=== PATIENT | female | born 1980 | race Caucasian/White ===

== ENCOUNTER 2025-05-26 09:57 | Day surgery (SDC) | payer OTHER, SELFPAY ==
[2025-05-19 14:46] VITALS: BMI 29.3
[2025-05-26] VITALS (8 sets, daily range): BP systolic 95–150; BP diastolic 62–82; PULSE 72–102; RESP 14–18; TEMP 36.6–36.9; O2SAT 98–100
[2025-05-26] MEDS: LACTATED RINGERS 1,000 ML 30 ML IV CONT ×2 (10:40→14:08)
--- OUTSIDE RECORDS SUMMARY | 2025-05-26 10:41 | XMS_ITS | Clinical Summary ---
Author Organization [facility] Address [address] [place] [id number] Care Team Providers Care Magnetic Tester Name Role Phone Naveen Mcneal MD Unavailable [phone] Elan Schaffer MD Primary Care Provider [phone] Allergies Active Allergy Reactions Criticality Noted Date Comments Sulfa (Sulfonamide Antibiotics) Swelling Medium 11/16 Medications ergocalciferol (VITAMIN D) 50,000 unit capsule Take 1 capsule (50,000 Units total) by mouth once a week 12 capsule 3 02/16/2022 Active topiramate (TOPAMAX) 25 mg tabletIndicatio ns:Abnormal weight gain,Overweight with body mass index (BMI) of 29 to 29.9 in adult Take 1 tablet (25 mg total) by mouth 2 (two) times a day 60 tablet 2 01/31/2024 Active semaglutide (Wegovy) 0.25 mg/0.5 mL auto-injector Inject 0.5 mL (0.25 mg total) under the skin every 7 days 2 mL 2 02/13/2024 Active Active Problems Problem Noted Date Diagnosed Date Class 1 obesity due to exces s calories without serious comorbidity with body mass index (BMI) of 32.0 to 32.9 in adult 07/23/2023 Abnormal weight gain 07/23/2023 Vitamin D deficiency 03/23/2023 Assessment & Plan (03/23/2023 10:18 AM CDT): - check vit d Metrorrhagia 04/25/2022 Assessment & Plan (04/25/2022 12:59 PM CDT): Recent onset-advised to get lab work done (estradiol, FSH, LH, testosterone, DHEA, and prolactin level, recent CBC and TSH from 01/2022 were unremarkable), informed will be notified of results when results become available. A referral was also made to gynecology for further evaluation and management, advised should be getting a call to schedule, however was provided with the contact information if would need to call diFollow-up as needed. Menorrhagia with irregular cycle 04/25/2022 Assessment & Plan (04/25/2022 12:56 PM CDT): See plan of care for metrorrhagia. Dysmenorrhea 04/25/2022 Assessment & Plan (04/25/2022 12:58 PM CDT): See plan of care for metrorrhagia. Advised can take OTC NSAID as directed as needed, alternating with Tylenol as directed as needed for additional pain relief. ASCUS of cervix with negative high risk HPV 04/14 Assessment & Plan (04/25/2022 1:01 PM CDT): Recent finding, HPV negative-discussed recommendation to repeat in 3 years, however previously gave option to repeat in 4-6 months to 1 yr if prefers and insurance allows. Normal breast exam 03/29/2022 Assessment & Plan (03/29/2022 8:38 AM CDT): In office breast exam with no abnormal findings, bilateral breast implants present. Painful lumpy right breast 11/23/2020 Assessment & Plan (12/28/2020 9:30 AM CDT): Overall Condition Chronic Condition: Uncontrolled. Treatment: Continue Present Management and Referral: Plastic Surgeon to assess implant status. Referral to OB-Rn Imaging to assess other causes of mastalgia. Follow up PRN Assessment & Plan (11/23/2020 7:39 AM FLAT LOCK OPERATOR): Overall Condition New Breast Self-finding needs to be evaluated. Fibrocystic Disease verus Fibroadenoma vs. Malignancy. Treatment: Imaging: Breat ultrasound in under 40 years old female to assess Breast consistency. and Referral: Depending on result, will consider further diagnostic stuides like Mammogram or Aquatics Manager Referral. Follow up in 1 month Encounter for well woman carlie see with routine gynecological exam 03/17/2020 Assessment & Plan (03/29/2022 8:39 AM CDT): Encouraged monthly breast self exams. Advised to follow recommendations for bilateral mammography due before end 2021. Recommended pap testing/HPV screening minimum every 5 years depending on outcome of test and patient preference. Assessment & Plan (03/17/2020 12:52 PM CDT): Encouraged monthly breast self exams. Discussed mammogram screening at age 40 years. Discussed guidelines recommending pap smears every 3 years or every 5 years with co-screening for HPV screening for women 30-65 years old, however, prefers having a well women examination every 1-2 years. Annual physical exam 03/17/2020 Assessment & Plan (03/23/2023 10:17 AM CDT): - Reviewed with the patient BMI, blood pressure, diet, exercise, and encouraged healthy lifestyle choices. - Screened for high risk behaviors, diet and exercise habits, and symptoms of depression. - check screening labs - encouraged regular exercise and weight loss Assessment & Plan (03/29/2022 8:38 AM CDT): HPV screening ordered. Assessment & Plan (03/17/2020 12:53 PM CDT): See encounter for well woman exam with routine gynecological exam. Screening for cervical cancer 12/10/2019 Assessment & Plan (03/29/2022 8:37 AM CDT): Sample of cervical cells for Pap smear obtained. Assessment & Plan (03/17/2020 12:53 PM CDT): See encounter for well woman exam with routine gynecological exam. Assessment & Plan (12/10/2019 8:50 AM FLAT LOCK OPERATOR): Referral to Amira Diego for Well Woman Annual Exam with PAP H/O breast augmentation (2007) 12/10/2019 Overweight (BMI 25.0-29.9) 12/10/2019 Assessment & Plan (12/10/2019 10:25 AM FLAT LOCK OPERATOR): Recommended aggressive Lifestyle modification and weight loss for improving overall weight related health conditions. Follow up in 1 or 3 months for continuing Lifestyle Medicine education and management visit. Overall Condition Chronic Condition: Uncontrolled. Treatment: New Medication: phentermine. Follow up in 3 months Acute bilateral low back pain without sciatica 0 12/10/2019 Assessment & Plan (06/07/2020 4:00 PM CDT): Toradol 60 mg IM given. Advised can take Tylenol as directed as needed tonight for pain and tomorrow can alternate Tylenol with ibuprofen as directed as needed. Has prescription for Flexeril, instructed can also take as directed as needed. Recommended applying ice for 15-20 minutes every hour when able for the first 48 hours after onset of pain, then can use heat or ice. Instructed to follow-up with Dr. Schaffer if pain does not improve, worsens, or new symptoms develop. Assessment & Plan (12/10/2019 10:25 AM FLAT LOCK OPERATOR): Overall Condition Chronic Condition: Uncontrolled. Treatment: New Medication: Flexeril and Referral: Physical therapy Follow up in 6 months Immunizations Immunization Administration Dates Next Due DTaP 5 Pertussis 04/09/2015 HPV, Quadrivalent 10/22/2006 Influenza, Unspecified 06/15/2023(Deferr ed: Patient decision),07/15/2022(Deferred: Patient Refused) Tdap 09/13/2010 Surgical History Surgery Date Site/Laterality Comments SECTION 2 BREAST BIOPSY 07/08/2021 Left AUGMENTATION MAMMAPLASTY 10/15/2008 - 10/14/2009 Bilater al silicone EXCESSIVE THIGH / HIP / BUTT OCK / FLANK SKIN EXCISION HYSTERECTOMY 12/13/2022 - 01/12/2023 Family History Medical History Relation Name Comments No Known Problems Father No Known Problems Mother Relation Name Status Comments Father Alive Mother Alive Social History Tobacco Use Types Packs/Day Years Used Date Smoking Tobacco: Never Smokeless Tobacco: Never Tobacco Cessation:Counseling Given: Not Answered Alcohol Use Standard Drinks/Week Comments Yes 0 (1 standard drink = 0.6 oz pur e alcohol) AUDIT-C Answer Date Recorded Q1: How often do you have a drink containing alc ohol? Monthly or less 01/31/2024 Q2: How many drinks containi ng alcohol do you have on a typical day when you are drinking? 1 or 2 01/31/2024 Q3: How often do you have si x or more drinks on one occasion? Less than monthly 01/31/2024 PHQ-2 Answer Date Recorded PHQ-2 Total Score (If total score is 3 or more points, staff should administer the PHQ-9) 0 03/23/2023 Personal Safety Answer Date Recorded Getting School Help Needed Denies 10/06 Comments No Sex and Gender Information Value Date Recorded Sex Assigned at Not on file Legal Sex Female 9:09 AM FLAT LOCK OPERATOR Gender Identity Female 04/24/2022 7:04 AM CDT Sexual Orientation Straight 04/24/2022 7 :04 AM CDT Obstetrics History Para Term AB IAB SAB Ectopic Multiple Livin g Live Births 2 2 2 Date Outcome GA Total Labor Labor/2nd/3rd Weight Sex Type Anes PTL Alma A1 A5 Name Clin Term Term Last Filed Vital Signs Vital Sign Reading Time Taken Comments Blood Pressure 108/82 07/23/2023 11:51 AM CDT Pulse 88 07/23/2023 11:51 AM CDT Temperature 36.1 C (96.9 F) 07/23/2023 11:51 AM CDT Respiratory Rate 18 07/23/2023 11:51 AM CDT Oxygen Saturation 98% 07/23/2023 11:51 AM CDT Inhaled Oxygen Concentration - - Weight 69.9 kg (154 lb) 01/29/2025 8:10 AM CDT Height 152.4 cm (5') 01/29/2025 8:10 AM CDT Body Mass Index 30.08 01/29/2025 8:10 AM CDT Plan of Treatment Health Maintenance Due Date Last Done Comments Hepatitis C Screening 1980 Hepatitis B Screening 1999 HPV Vaccines (2 - 3-dose series) 11/19/2006 10/22/2006 Depression Screening 03/23/2024 03/23/2023, 01/27/2022, 12/28/2020, Additional history exists Regular Well Visit/Exam 18-64 03/23/2024 03/23/2023, 03/29/2022, 01/27/2022, Additional history exists Covid-19 Vaccine ( season) 2024 10/13/2022, 09/04/2021, 12/25/2020, Additional history exists DTaP/Tdap/Td Vaccine (3 - Td or Tdap) 04/09/2025 04/09/2015, 09/13/2010 Influenza Vaccine (#1) 2025 Breast Cancer Screening-Mammogram 01/29/2026 01/29/2025, 01/14/2024, 01/10/2023, Additional history exists Cervical Cancer Screening Discontinued 03/29/2022, 12/2019 Pneumococcal vaccine <65 Aged Out No longer eligible based on patient's age to complete this topic Varicella Vaccines Discontinued Procedures Procedure Name Priority Date/Time Associated Diagnosis Comments SCREENING MAMMOGRAM BILATERAL W HANK W IMPLANTS Schedule Routine, Read Routine (OP Routine) 01/29/2025 8:10 AM CDT Screening mammogram, encounter for PAP AND HIGH RISK HPV, REFLEX TO GENOTYPING Routine 03/29/2022 12:09 PM CDT Encounter for well woman exam with routine gynecological exam from Last 3 Months or Most Recently Relevant to Health Maintenance Results * Screening Mammogram Bilateral W Hank W Implants (01/29/2025 8:10 AM CDT) Anatomical Region Laterality Modality Breast Bilateral Mammography Impressions 01/29/2025 8:24 AM CDT Bilateral No evidence of malignancy in either breast. OVERALL BI-RADS FINAL ASSESSMENT: 1 - Negative RECOMMENDATION: Recommend bilateral annual screening mammography. Narrative 01/29/2025 8:24 AM CDT EXAMINATION: Screening Mammogram Bilateral W Hank W Implants: 01/29/2025 COMPARISON: Relevant prior studies available at the time of interpretation were reviewed. TECHNIQUE: Mammography was performed with 2D and digital breast tomosynthesis (DBT) images. CAD was utilized. BREAST PARENCHYMAL COMPOSITION: The breasts are heterogeneously dense, which may obscure small masses.There is a biopsy marker on the left. There are bilateral retropectoral silicone implants. The presence of implants limits the sensitivity of mammography. FINDINGS: Bilateral There is no suspicious mass, calcification, or architectural distortion in either breast. us Self Screening Mammogram IMG MAMMO PROCEDURES Fi nal Result * (ABNORMAL) Pap and High Risk HPV, reflex to Genotyping (03/29/2022 12:09 PM CDT) Thin prep (Pap test) 03/29/2022 12:09 PM CDT 03/30/2022 12:09 PM CDT Narrative PATHOLOGY [facility] - 04/04/2022 4:57 PM CDT [facility] Department of Pathology [address] [place], [place] [id number] Final Report with Addendum Note to Patients: This report may contain a detailed description of human tissue sent by a health care provider to the laboratory for pathologic evaluation. The content of this report is essential for diagnosis and may provide important critical findings. This information may be unfamiliar to patients to review without a medical professional present. It is advised that the patient review this report in the presence of a health care provider who can answer questions and explain the details. Patient Name: DALLAS ABARCA Address: [facility] [place] [address] Gender: F : 1980 (Age: 41) Service: Laboratory Location: N : [id number] [facility] #: [id number] Patient Type: [facility] SPECIMEN Taken: 03/29/2022 Received: 03/30/2022 Accessioned:: 03/31/2022 Reported: 04/04/2022 Physician(s): Lorie AndersonNJose AJose A [facility] Diagnosis: Source of Specimen: SCREENING THIN PREP IMAGED PAP w/ HPV Specimen Adequacy: - Satisfactory for evaluation; endocervical/transformation zone component present General Category: - Epithelial cell abnormality Interpretation/Results: - Atypical squamous cells of undetermined significance ANANTH Glass(ASCP)Alden Soler M.D. Report Electronically Reviewed and Signed Out By Alden Soler M.D. 04/04/2022 16:57:26Addenda: HPV Test Interpretation NEGATIVE for types 16, 18, 31, 33, 35, 39, 45, 51, 52, 56, 58, 59, 66 and 68. Test performed utilizing Gen-Probe Aptima assay. ANANTH Glass(ASCP)Report Electronically Reviewed and Signed Out By ANANTH Glass(ASCP) 03/31/2022 14:45:46 Specimen(s) Received: A: SCREENING THIN PREP IMAGED PAP w/ HPV Clinical History: The Pap test is a screening test used to aid in the detection of cervical cancer and its precursors. It should not be the sole means by which malignant and premalignant lesions are diagnosed. Both false negative and false positive results may occur. It also has poor sensitivity for the detection of endometrial lesions and should not be used to evaluate suspected endometrial abnormalities. For these reasons it is most important to obtain Pap tests at regular intervals. The performance characteristics of some immunohistochemical stains, fluorescence in-situ hybridization tests and immunophenotyping by flow cytometry cited in this report (if any) were determined by the Surgical Pathology Department at [facility] as part of an ongoing water quality tester program and in compliance with federally mandated regulations drawn from the Clinical Laboratory Improvement Act of 1988 (CLIA '88). Some of these tests rely on the use of analyte specific reagents and are subject to specific labeling requirements by the US Food and Drug Administration. Such diagnostic tests may only be performed in a facility that is certified by the Department of Health and Human Services as a high complexity laboratory under CLIA '88. The FDA has determined that such clearance or approval is not necessary. This test is used for clinical purposes. It should not be regarded as investigational or for research. Nevertheless, federal rules concerning the medical use of analyte specific reagents require that the following disclaimer be attached to the report: This test was developed and its performance characteristics determined by the Surgical Pathology Department [facility]. It has not been cleared or approved by the U. S. Food and Drug Administration. Amira Diego NP LAB CYTOLOGY ORDERABLES Final Re sult PATHOLOGY [facility] from Last 3 Months or Most Recently Relevant to Health Maintenance [facility]S Care Teams Magnetic Tester Relationship Specialty Start Date End Date Elan Schaffer MD [address] [facility] [address] [place] [address] PCP - General Family Medicine 07/23/23 Naveen Mcneal MD [address] [place] [address] Referring Physician Plastic Surgery 06/22/21
--- OUTSIDE RECORDS SUMMARY | 2025-05-26 10:42 | XMS_ITS | Continuity of Care Document ---
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 LANDRY 03/31 [place]ased w/[place] Limitations [place] [employer](Del ta) OUTPATIENT [id number] pap TIFFANY-ESSIE PASCUAL V 04/24 Released w/o Limitations [employer](D elta) [employer](Opt ometry) OUTPATIENT [id number] well eye exam CHRISTAL MEJIA 11/27 Released w/o Limitations [employer](O ptometr y) [employer](Spa ce/Missil e Medicine) OUTPATIENT [id number] c/o knee BETO MAIER 12/10 Released w/o Limitations [employer](S pace/Mi ssile Medicin e) [employer](Del ta) OUTPATIENT [id number] F/u Knee pain TIFFANY-ESSIE PASCUAL V 02/10 Released w/o Limitations [employer](D elta) [employer](Del ta) OUTPATIENT [id number] back pain BARTOLO MOODY 10/27 Released w/o Limitations [employer](D elta) [employer](Spe cial Needs Program) TELE CONSULT [id number] Notes Entered by: PARAS BEEBE 06 Jan 2015 1132 ------- ------- ------- ------- -- ASHLYN/ PARAS ELIZONDO 01/06 Referred for Appointment [employer](S pecial Needs Program ) [employer](Del ta) OUTPATIENT [id number] PCSing physica l ESSIE CHRIS V 01/11 Released w/o Limitations [employer](D elta) [employer](Spe cial Needs Program) OUTPATIENT [id number] CRUZ STRONG Ilda 01/13 Released w/o Limitations [employer](S pecial Needs Program ) [employer](ZZZ Ncirlik_F HC_Team A) OUTPATIENT [id number] cold since Satur y, not getting better, slight fever ZINA MCCABE 11/25 Released w/o Limitations [employer](Z ZZNcirl ik_FHC_ Team A) [employer](ZZZ Ncirlik_F HC_Team A) OUTPATIENT [id number] ADOLPH BLISS 01/05 Released w/o Limitations [employer](Z ZZNcirl ik_FHC_ Team A) [employer] [facility]ovanny Ilda [place])(War rior Op Med Cln Tm A Ad) OUTPATIENT [id number] Issue with right knee [id number] MURRAY MILLIGAN 06/15 Released w/o Limitations [employer] Jovanny [facility])(W arrior Op Med Cln Tm A Ad) [employer] J[facility]anny [facility])(War rior Op Med Cln Tm A Ad) TELE CONSULT [id number] Notes Entered by: SHWETHA REYNOLDS 07 Jul 2016 0932 ------- ------- ------- ------- -- Network results Physica l Therapy 016 MURRAY GUZMAN 07/07 Medical Group Jovanny [facility])(W arrior Op Med Cln Tm A Ad) [facility])(Sco tt [facility] Fam Res Tm Gold) OUTPATIENT [id number] back pain x3days, [id number] KEVIN GARCIA 02/05 Released w/o Limitations [employer] Jovanny [facility])(S cott [facility] Fam Res Tm Gold) [employer] J[facility]anny [facility])(War rior Op Med Cln Tm A Ad) TELE CONSULT [id number] Notes Entered by: Km JACKSON 27 Feb 2017 1518 ------- ------- ------- ------- -- Network results Occupat ional/P hysical Therapy 02/19/17 TB MURRAY MILLIGAN 02/[address] [place] [address])(W arrior Op Med Cln Tm A Ad) [address] [place] [address])(War rior Op Med Cln Tm A Ad) OUTPATIENT [id number] pre-emp loyment physica l MURRAY MILLIGAN 02/27 Released w/o Limitations [address] [place] [address])(W arrior Op Med Cln Tm A Ad) [address] [place] [address])(War rior Op Med Cln Tm A Ad) OUTPATIENT [id number] lower back pain, [id number] MURRAY MILLIGAN 06/01 Released w/o Limitations [address] [place] [address])(W arrior Op Med Cln Tm A Ad) [address] [place] [address])(War rior Op Med Cln Tm A Ad) TELE CONSULT [id number] Notes Entered by: Romy SANABRIA 22 Jun 2017 1346 ------- ------- ------- ------- -- Low Back MRI Request - F/U Low Back X-ray/ Abhilash / [id number] 2 - AVNI Adames 06/22 Referred for Appointment [address] [place] [address])(W arrior Op Med Cln Tm A Ad) [address] [place] [address])(Control Board Operator ecology) OUTPATIENT [id number] WWE, 448.003 2 JOELLEN SARAVIA 11/16 Released w/o Limitations [address] [place] [address])(G ynecolo gy) [address] [place] [address])(Control Board Operator ecology) OUTPATIENT [id number] 7 [id number], [id number] eferral for heavy bleedin g and irregul ar BE ATKINSON 05/04 Released w/o Limitations [address] [place] [address] [employer] ([facility])(G ynecolo gy) [address] [place] [address] [employer] ([facility])(Control Board Operator ecology) TELE CONSULT [id number] Notes Entered by: VARUN IRELAND 15 May 2022 1534 ------- ------- ------- ------- -- Results review BE ATKINSON 05/[address] [place] [address] [employer] ([facility])(G ynecolo gy) [address] [place] [address] [employer] ([facility])(Control Board Operator ecology) OUTPATIENT [id number] Results of US and Discuss Hystere ctomy BE ATKINSON 06/26 Released w/o Limitations [address] [place] [address] Group [employer] ([facility])(G ynecolo gy) [address] [place] [address] [employer] ([facility])(Control Board Operator ecology) OUTPATIENT [id number] 3 F/U discuss hystere ctomy// BE ATKINSON 11/23 Released w/o Limitations [address] [place] [address] Group [employer] ([facility])(G ynecolo gy) [address] [place] [address] [employer] ([facility])(Control Board Operator ecology) TELE CONSULT [id number] Notes Entered by: ANKUR CRAWLEY 01 Dec 2022 1525 ------- ------- ------- ------- -- confirm ation of surgery EMILIANO SALDANA 12/[address] [place] [address] Group [employer] ([facility])(G ynecolo gy) [address] [place] [address] [employer] ([facility])(Control Board Operator ecology) TELE CONSULT [id number] Notes Entered by: EMILIANO SALDANA 12 Dec 2022 0900 ------- ------- ------- ------- -- Surgery EMILIANO Ramos 12/[address] [place] [address] [employer] ([facility])(G ynecolo gy) [address] [place] [address] [employer] ([facility])(Control Board Operator ecology) TELE CONSULT [id number] Notes Entered by: DIANA SIERRAEDERJONATHON Frazier 19 Dec 2022 1513 ------- ------- ------- ------- -- Right Fax BE ATKINSON 12/[address] [place] [address] [employer] ([facility])(G ynecolo gy) [address] [place] [address] [employer] ([facility])(Control Board Operator ecology) OUTPATIENT [id number] 3 wk post op BE ATKINSON 01/03 Released w/o Limitations [address] [place] [address] [employer] ([facility])(G ynecolo gy) [address] [place] [address] [employer] ([facility])(Control Board Operator ecology) OUTPATIENT [id number] 0 Ingrown hair since surgery MARGARET FRANCISCO 01/11 Released w/o Limitations [address] [place] [address] [employer] ([facility])(G ynecolo gy) [address] [place] [address] [employer] ([facility])(Control Board Operator ecology) OUTPATIENT [id number] 6 wk post op BE ATKINSON 01/22 Released w/o Limitations [address] [place] [address] [employer] ([facility])(G ynecolo gy) Procedures Combined list of: 1) Procedures from Department of Veterans Affairs facilities going back up to thelast 18 months, not all VA non-surgical procedures are included; 2) All procedures from the Department of Defense facilities. Procedure Procedure Type Code Date Perfomer Comments Sourc e TELE ASSESS & MGT SRV PROV QUAL NONPHYS HLTH CARE PRO TO EST PAT,PARENT,GUARD NOT ORIG REL ASSESS & MGT SRV PROV W/IN PREV 7 DAYS NOR LEAD ASSESS & MGT SRV/PX W/IN NXT 24 HR/SOON APT;5-10 MIN MED DIS 023 DoD BRIEF EMOTIONAL/BEHAVIORAL ASSESSMENT (EG, DEPRESSION INVENTORY, ATTENTION-DEFICIT/HYPER ACTIVITY DISORDER [ADHD] SCALE), WITH SCORING AND DOCUMENTATION, PER STANDARDIZED INSTRUMENT 018 [facility] SCREENING PAPANICOLAOU SMEAR; OBTAINING, PREPARING AND CONVEYANCE OF CERVICAL OR VAGINAL SMEAR TO LABORATORY 011 DoD PURE TONE AUDIOMETRY (THRESHOLD); AIR AND BONE [facility] OPHTHALMOSCOPY, EXTENDED, WITH RETINAL DRAWING (EG, FOR RETINAL DETACHMENT, MELANOMA), WITH INTERPRETATION AND REPORT; INITIAL [facility] SCREENING PAPANICOLAOU SMEAR; OBTAINING, PREPARING AND CONVEYANCE OF CERVICAL OR VAGINAL SMEAR TO LABORATORY 010 [facility] HEALTH&BEHAV ASSESSMENT (EG, HEALTH-FOC CLINICAL INTERVIEW, BEHAVIORAL OBSERVATIONS, PSYCHOPHYSICOLOGICAL MONITOR, HEALTH-ORIENT QUESTIONNAIRES), EA 15 MIN GLDH-HC-CVCF W THE PATIENT; INIT ASSESSMENT [facility] THERAPEUTIC, PROPHYLACTIC, OR DIAGNOSTIC INJECTION (SPECIFY SUBSTANCE OR DRUG); SUBCUTANEOUS OR INTRAMUSCULAR 015 [facility] EXERCISE EQUIPMENT 014 [facility] DETERMINATION OF REFRACTIVE STATE [facility] SCREENING PAPANICOLAOU SMEAR; OBTAINING, PREPARING AND CONVEYANCE OF CERVICAL OR VAGINAL SMEAR TO LABORATORY 013 [facility] SCREENING PAPANICOLAOU SMEAR; OBTAINING, PREPARING AND CONVEYANCE OF CERVICAL OR VAGINAL SMEAR TO LABORATORY 008 [facility] SCREENING PAPANICOLAOU SMEAR; OBTAINING, PREPARING AND CONVEYANCE OF CERVICAL OR VAGINAL SMEAR TO LABORATORY 008 [facility] SUBSEQ CARE VISIT () [EXCLS:PATIENTS WHO ARE SEEN FOR A CONDITION UNREL TO / CARE (EG,AN UP RESPIR INFECT;PATIENTS SEEN FOR CONSULTATION ONLY,NOT FOR CONT CARE)] [facility] SUBSEQ CARE VISIT () [EXCLS:PATIENTS WHO ARE SEEN FOR A CONDITION UNREL TO / CARE (EG,AN UP RESPIR INFECT;PATIENTS SEEN FOR CONSULTATION ONLY,NOT FOR CONT CARE)] [facility] SUBSEQ CARE VISIT () [EXCLS:PATIENTS WHO ARE SEEN FOR A CONDITION UNREL TO / CARE (EG,AN UP RESPIR INFECT;PATIENTS SEEN FOR CONSULTATION ONLY,NOT FOR CONT CARE)] [facility] SUBSEQ CARE VISIT () [EXCLS:PATIENTS WHO ARE SEEN FOR A CONDITION UNREL TO / CARE (EG,AN UP RESPIR INFECT;PATIENTS SEEN FOR CONSULTATION ONLY,NOT FOR CONT CARE)] [facility] SUBSEQ CARE VISIT () [EXCLS:PATIENTS WHO ARE SEEN FOR A CONDITION UNREL TO / CARE (EG,AN UP RESPIR INFECT;PATIENTS SEEN FOR CONSULTATION ONLY,NOT FOR CONT CARE)] [facility] SUBSEQ CARE VISIT () [EXCLS:PATIENTS WHO ARE SEEN FOR A CONDITION UNREL TO / CARE (EG,AN UP RESPIR INFECT;PATIENTS SEEN FOR CONSULTATION ONLY,NOT FOR CONT CARE)] [facility] SUBSEQ CARE VISIT () [EXCLS:PATIENTS WHO ARE SEEN FOR A CONDITION UNREL TO / CARE (EG,AN UP RESPIR INFECT;PATIENTS SEEN FOR CONSULTATION ONLY,NOT FOR CONT CARE)] [facility] COLPOSCOPY OF THE CERVIX INCLUDING UPPER/ADJACENT VAGINA; WITH ENDOCERVICAL CURETTAGE [facility] HUMAN PAPILLOMAVIRUS VACCINE, TYPES 6, 11, 16, 18, QUADRIVALENT (4VHPV), 3 DOSE SCHEDULE, FOR INTRAMUSCULAR USE 007 [facility] SCREENING PAPANICOLAOU SMEAR; OBTAINING, PREPARING AND CONVEYANCE OF CERVICAL OR VAGINAL SMEAR TO LABORATORY 006 [facility] INJECTION, MEDROXYPROGESTERONE ACETATE FOR CONTRACEPTIVE USE, 150 MG 005 [facility] SCREENING PAPANICOLAOU SMEAR; OBTAINING, PREPARING AND CONVEYANCE OF CERVICAL OR VAGINAL SMEAR TO LABORATORY 005 [facility] SUBSEQ CARE VISIT () [EXCLS:PATIENTS WHO ARE SEEN FOR A CONDITION UNREL TO / CARE (EG,AN UP RESPIR INFECT;PATIENTS SEEN FOR CONSULTATION ONLY,NOT FOR CONT CARE)] 005 [facility] INFUSION, NORMAL SALINE SOLUTION , 1000 CC 004 [facility] INJECTION, PROMETHAZINE HCL, UP TO 50 MG 004 [facility] Cervical Pap Smear Cervical Pap Smear 21428 11/16 018 JOELLEN SARAVIA [facility] Health And Behav A e mt Each 15 Min Initial A e ment Health And Behav Assessmt Each 15 Min Initial Assessment [address] Supervised Injection Intramuscular Supervised Injection Intramuscular 11729 015 BARTOLO ARMENDARIZ Exercise equipment 014 ESSIE HOUSTON Knee orthosis, immobilizer, canvas longitudinal, prefabricated, [id number] 014 ESSIE HOUSTON Determination Of Refractive State Determination Of Refractive State [id number] 014 CHRISTAL MEJIA [facility] Ophthalmological New Patient Start Comprehensive Care Ophthalmological New Patient Start Comprehensive Care 04497 014 CHRISTAL MEJIA DoD Screening papanicolaou smear; obtaining, preparing and conveyance of cervical or vaginal smear to laboratory 013 ESSIE HOUSTON V DoD Screening papanicolaou smear; obtaining, preparing and conveyance of cervical or vaginal smear to laboratory 011 PALOMO STEEL DoD Threshold Audiogram Air And Bone Threshold Audiogram Air And Bone 74702 010 JOCELYN KATZ DoD Fundoscopic Exam Extensive Initial Exam Fundoscopic Exam Extensive Initial Exam 53667 010 LEOBARDO CHO Determination Of Refractive State Determination Of Refractive State 51110 010 LEOBARDO CHO DoD Ophthalmological New Patient Start Comprehensive Care Ophthalmological New Patient Start Comprehensive Care 31945 010 LEOBARDO CHO Screening papanicolaou smear; obtaining, preparing and conveyance of cervical or vaginal smear to laboratory 010 TERRY HESS DoD Screening papanicolaou smear; obtaining, preparing and conveyance of cervical or vaginal smear to laboratory 008 CAROLYN ORTA Screening papanicolaou smear; obtaining, preparing and conveyance of cervical or vaginal smear to laboratory 008 CAROLYN ORTA Cervical Culture Chlamydia trachomatis Cervical Culture Chlamydia trachomatis 68508 008 CAROLYN ORTA OB Services Antepartum Care Only Subsequent Single Visit OB Services Antepartum Care Only Subsequent Single Visit 0502F 007 GEOFFREY MANZANO OB Services Antepartum Care Only Subsequent Single Visit OB Services Antepartum Care Only Subsequent Single Visit 0502F 007 GEOFFREY MANZANO DoD OB Services Antepartum Care Only Subsequent Single Visit OB Services Antepartum Care Only Subsequent Single Visit 0502F 007 GEOFFREY MANZANO OB Services Antepartum Care Only Subsequent Single Visit OB Services Antepartum Care Only Subsequent Single Visit 0502F 007 GEOFFREY MANZANO DoD OB Services Antepartum Care Only Subsequent Single Visit OB Services Antepartum Care Only Subsequent Single Visit 0502F 007 ROSAMARIA LY DoD OB Services Antepartum Care Only Subsequent Single Visit OB Services Antepartum Care Only Subsequent Single Visit 0502F 007 ROSAMARIA LY [facility] OB Services Antepartum Care Only Subsequent Single Visit OB Services Antepartum Care Only Subsequent Single Visit 0502F 007 ROSAMARIA LY [facility] Colposcopy Cervix With Endocervical Curettage Colposcopy Cervix With Endocervical Curettage [id number] 007 BECKA INFANTE Vaginal Pap Smear Vaginal Pap Smear 99742 11/06 007 BECKA INFANTE [facility] Human Papilloma Virus Vaccine, Quadrivalent Human Papilloma Virus Vaccine, Quadrivalent [id number] 007 AGUSTÍN MARIA [facility] Immunization Administration One Vaccine Immunization Administration One Vaccine 18009 007 AGUSTÍN MARIA [facility] Screening papanicolaou smear; obtaining, preparing and conveyance of cervical or vaginal smear to laboratory [address] Supervised Injection Intramuscular Supervised Injection Intramuscular [id number] 005 JOCELYN ALANIS Injection, medroxyprogesterone acetate for contraceptive use, 150 mg 005 JOCELYN ALANIS [facility] Screening papanicolaou smear; obtaining, preparing and conveyance of cervical or vaginal smear to laboratory 005 JAQUAN PETERSON Obstetrical Services Care Only Obstetrical Services Care Only [id number] 005 JAQUAN PETERSON OB Services Antepartum Care Only Subsequent Single Visit OB Services Antepartum Care Only Subsequent Single Visit [id number] 005 JAQUAN PETERSON [facility] Non-Physician Phone Call To Patient/Provider Brief (5-10min) Non-Physician Phone Call To Patient/Provider Brief (5-10min) [id number] EMILIANO SALDANA [facility] Social History Combined list of available smoking, tobacco, and other social history from Department of Defense and Veterans Affairs facilities. Social History Type Response Date Comment Sour e This section is an empty social history section. DoD
--- OUTSIDE RECORDS SUMMARY | 2025-05-26 10:42 | XMS_ITS | Clinical Summary ---
Author Organization [facility] Address [address] [place] [address] Care Team Providers Care Wallpaper Printer Helper Name Role Phone Ramírez Younger MD Primary Care Provider [phone] Allergies Active Allergy Reactions Criticality Noted Date Comments Sulfa Antibiotics Hives,Swelling 12/13/2022 Medications vitamin D3, cholecalciferol, 5000 UNITS capsule Take 1 capsule by mouth daily. Active cyclobenzaprine (FLEXERIL) 10 MG tablet Take 10 mg by mouth. Active gabapentin (NEURONTIN) 300 MG capsule Take 1 capsule (300 mg total) by mouth 3 (three) times daily. 90 capsule 3 Active oxyCODONE immediate release (ROXICODONE) 5 MG immediate release tabletIndications:A cute Pain < 3 Day Supply Take 1 tablet (5 mg total) by mouth every 6 (six) hours as needed. Indications: Acute Pain < 3 Day Supply 5 tablet 3 Active ondansetron (ZOFRAN-ODT) 4 MG disintegrating tablet Take 1 tablet (4 mg total) by mouth every 8 (eight) hours as needed for Nausea. 20 tablet 3 Active Active Problems Problem Noted Date Diagnosed Date S/P laparoscopic hysterectomy 12/13/2022 ASCUS of cervix with negative high risk HPV 04/14 Overview (12/14/2022): Last Assessment & Plan: Recent finding, HPV negative-discussed recommendation to repeat in 3 years, however previously gave option to repeat in 4-6 months to 1 yr if prefers and insurance allows. Dysmenorrhea 04/25/2022 Overview (12/14/2022): Last Assessment & Plan: See plan of care for metrorrhagia. Advised can take OTC NSAID as directed as needed, alternating with Tylenol as directed as needed for additional pain relief. Acute bilateral low back pain without sciatica 0 12/10/2019 Overview (12/14/2022): Last Assessment & Plan: Toradol 60 mg IM given. Advised can [...] not improve, worsens, or new symptoms develop. H/O breast augmentation 12/10/2019 Social History Tobacco Use Types Packs/Day Years Used Date Smoking Tobacco: Never Smokeless Tobacco: Never Alcohol Use Standard Drinks/Week Comments Yes 0 (1 standard drink = 0.6 oz pur e alcohol) 1-2/mo Comments No Sex and Gender Information Value Date Recorded Sex Assigned at Not on file Legal Sex Female 7:39 PM CDT Gender Identity Not on file Sexual Orientation Not on file Last Filed Vital Signs Vital Sign Reading Time Taken Comments Blood Pressure 108/79 12/14/2022 8:24 AM CORN GRINDER Pulse 80 12/14/2022 8:24 AM CORN GRINDER Temperature 36.8 C (98.2 F) 12/14/2022 12:00 AM CORN GRINDER Respiratory Rate 16 12/14/2022 8:24 AM CORN GRINDER Oxygen Saturation 100% 12/14/2022 8:24 AM CORN GRINDER Inhaled Oxygen Concentration - - Weight 76 kg (167 lb 8.8 oz) 12/13/2022 6:15 AM CORN GRINDER Height 157.5 cm (5' 2) 12/13/2022 6:15 AM CORN GRINDER Body Mass Index 30.65 12/13/2022 6:15 AM CORN GRINDER Plan of Treatment Health Maintenance Due Date Last Done Comments Cervical Cancer Screening Pap Smear (Age 30 to 64) Every 3 Years 1981 Annual Physical 1984 Hepatitis C 1999 Hepatitis B Vaccines (1 of 3 - 19+ 3-dose series) 2000 HPV Vaccines (1 - 3-dose SCDM series) 2008 Cervical Cancer Screening Pap with HPV Testing (Age 30 to 64) Every 5 Years 2011 Cervical Cancer Screening with HPV 2011 Mammogram Screening 2021 COVID-19 Vaccine ( season) 2024 10/13/2022, 09/04/2021, 12/25/2020, Additional history exists DTaP, Tdap and Td Vaccines (2 - Tdap) 04/09/2025 04/09/2015 Meningococcal B Vaccine Aged Out No l onger eligible based on patient's age to complete this topic Meningococcal Vaccine Aged Out No alfredo kevan eligible based on patient's age to complete this topic Pneumococcal Vaccine: Pediatrics (0 to 5 Years) and At-Risk Patients (6 to 49 Years) Aged Out No longer eligible based on patient's age to complete this topic RSV Immunizations Under 20 Months Aged Out No longer eligible based on patient's age to complete this topic Insurance [employer] Advance Directives * Full Code (Latest Code Status on File) Date Activated Date Inactivated Comments 12/13/2022 11:29 AM 12/14/2022 1:30 PM Care Teams Wallpaper Printer Helper Relationship Specialty Start Date End Date Ramírez Younger MD [address] [address] PCP - General FAMILY PRACTICE 12/05/22
--- OUTSIDE RECORDS SUMMARY | 2025-05-26 10:42 | XMS_ITS | Encounter Summary ---
Author Organization [facility] Address [address] [place] [address] Care Team Providers Care Olive Packer Name Role Phone Ramírez Younger MD Primary Care Provider [phone] Encounter Details Date Type Department Care Team (Late st Contact Info) Description 12/05/2022 Prep for Procedure [facility] Pre-Admission Testing [address] [place], [place] [id number] Sohail Alvarado, DO [address] [place], [place] [id number] Social History Tobacco Use Types Packs/Day Years Used Date Smoking Tobacco: Never Smokeless Tobacco: Never Alcohol Use Standard Drinks/Week Comments Yes 0 (1 standard drink = 0.6 oz pur e alcohol) 1-2/mo Comments No Sex and Gender Information Value Date Recorded Sex Assigned at Not on file Legal Sex Female 7:39 PM CDT Gender Identity Not on file Sexual Orientation Not on file COVID-19 Exposure Response Date Recorded In the last 10 days, have yo u been in contact with someone who was confirmed or suspected to have Coronavirus/COVID-19? No / Unsure 12/05/2022 12:38 PM WIRELESS DEVELOPMENT MANAGER documented as of this encounter Plan of Treatment Not on file documented as of this encounter Results * (ABNORMAL) BASIC METABOLIC PANEL (12/06/2022 9:01 AM WIRELESS DEVELOPMENT MANAGER) [facility] GLUCOSE 78 70 - 99 MG/DL 12/06/2022 9:31 AM [facility] BUN 13 7 - 18 MG/DL 12/06/2022 9:31 AM [facility] CREATININE S/P/B 0.86 0.55 - 1.02 MG/DL 12/06/2022 9:31 AM [facility] SODIUM S/P/B 136 136 - 145 MMOL/L 12/06/2022 9:31 AM [facility] POTASSIUM S/P/B 4.0 3.5 - 5.1 MMOL/L 12/06/2022 9:31 AM [facility] CHLORIDE S/P/B 107 100 - 108 MMOL/L 12/06/2022 9:31 AM [facility] CO2 25.9 21 - 32 MMOL/L 12/06/2022 9:31 AM [facility] CALCIUM S/P/B 8.8 8.5 - 10.1 MG/DL 12/06/2022 9:31 AM [facility] ANION GAP 3.1(L) 5 - 15 MMOL/L 12/06/2022 9:31 AM [facility] BUN CREATININE RATIO 15.0 6 - 26 12/06/2022 9:31 AM [facility] GFR ESTIMATE 87(L) >90 ML/MIN/1.7 3 M2 12/06/2022 9:31 AM [facility] Comment: NOTE: eGFR is not calculated for patients <18 years of age. This is an estimated GFR calculation using the new CKD EPI creatinine equation without race and so does not require a correction factor for race. This estimated GFR should not be used for calculating drug doses. 12/06/2022 9:01 AM WIRELESS DEVELOPMENT MANAGER Sohail Alvarado DO LABORATORY Final Result [facility] [address] [place] [address], [place] [phone] * TYPE & SCREEN (12/06/2022 9:01 AM WIRELESS DEVELOPMENT MANAGER) Pathologist [facility] ABO/RH B POSITIVE 12/06/2022 10:44 AM [facility] ANTIBODY SCREEN NEGATIVE 12/06/2022 10:44 AM [facility] SAMPLE EXPIRATION 12/16/2022,2 359 12/13/2022 7:49 AM [facility] COMMENT NO HISTORY OF TRANSFUSIONS , OR ANTIBODIES, NEW SPECIMEN NOT NEEDED 12/13/2022 7:49 AM [facility] 12/06/2022 9:01 AM WIRELESS DEVELOPMENT MANAGER Sohail Alvarado DO BLOOD BANK TEST ORDER BRIAN Final Result [facility] [address] [place] [address], * CBC W/DIFF AUTOMATED (12/06/2022 9:01 AM WIRELESS DEVELOPMENT MANAGER) [facility] WBC 4.7 4.5 - 11.0 x10'3/uL 12/06/2022 9:11 AM [facility] RBC 4.56 4.20 - 5.40 x10'6/uL 12/06/2022 9:11 AM [facility] HGB 13.6 12.0 - 16.0 G/DL 12/06/2022 9:11 AM [facility] HCT 41.5 38.0 - 48.0 % 12/06/2022 9:11 AM [facility] MCV 91.0 81.0 - 99.0 FL 12/06/2022 9:11 AM [facility] MCH 29.8 27.0 - 31.0 PG 12/06/2022 9:11 AM [facility] MCHC 32.8 32.0 - 36.0 G/DL 12/06/2022 9:11 AM [facility] RDW 12.6 11.5 - 14.5 % 12/06/2022 9:11 AM [facility] PLT 257 130 - 400 x10'3/uL 12/06/2022 9:11 AM [facility] MPV 10.6 9.3 - 12.2 FL 12/06/2022 9:11 AM [facility] DIFFERENTIAL TYPE AUTOMATED DIFFERENTIAL 12/06/2022 9:11 AM [facility] NEUTROPHILS % 62.2 % 12/06/2022 9:11 AM [facility] LYMPHOCYTES % 26.8 % 12/06/2022 9:11 AM [facility] MONOCYTES % 5.7 % 12/06/2022 9:11 AM [facility] EOSINOPHILS 4.5 % 12/06/2022 9:11 AM [facility] BASOPHILS 0.6 % 12/06/2022 9:11 AM [facility] IMMATURE GRANS % 0.2 % 12/06/19 9:11 AM [facility] ABS. NEUTROPHILS TOTAL 2.93 1.80 - 7.70 x10'3/uL 12/06/2022 9:11 AM [facility] ABS. LYMPHOCYTES 1.26 1.00 - 4.80 x10'3/uL 12/06/2022 9:11 AM [facility] ABS. MONOCYTES 0.27 0.24 - 0.86 x10'3/uL 12/06/2022 9:11 AM WIRELESS DEVELOPMENT MANAGER [facility] ABS. EOSINOPHILS 0.21 0.04 - 0.36 x10'3/uL 12/06/2022 9:11 AM WIRELESS DEVELOPMENT MANAGER [facility] ABS. BASOPHILS 0.03 0.01 - 0.08 x10'3/uL 12/06/2022 9:11 AM WIRELESS DEVELOPMENT MANAGER [facility] ABS. IMMATURE GRANULOCYTES 0.01 0.00 - 0.49 x10'3/uL 12/06/2022 9:11 AM WIRELESS DEVELOPMENT MANAGER [facility] 12/06/2022 9:01 AM WIRELESS DEVELOPMENT MANAGER Sohail Alvarado DO LABORATORY Final Result [facility] [address] [place] [address], documented in this encounter Visit Diagnoses Diagnosis Heavy menstrual bleeding- Primary Excessive or frequent menstruation documented in this encounter Care Teams Olive Packer Relationship Specialty Start Date End Date Ramírez Younger MD [address] [place] [id number] PCP - General FAMILY PRACTICE 12/05/22 documented as of this encounter
--- NOTE | 2025-05-26 11:36 | WPDANESEPPF ---
Anes - Initial Pre Proc Eval Procedure: Operation Date: 05/26/25 12:00 Proposed Procedures p Bilateral Breast Implant Exchange - Naveen Mcneal MD Date/Time: 05/26/25 11:36 Surgeon: Naveen Mcneal MD Pre Op Diagnosis: History of Breast Augmentation Patient Data Age: 44 Gender: F Height: 1.57 m Weight: 73.25 kg Last Vital Signs Temp 98.1 F 05/26/25 10:35 Pulse 72 05/26/25 10:35 Resp 18 05/26/25 10:35 BP 110/79 05/26/25 10:35 Pulse Ox 100 05/26/25 10:35 O2 Del Method Room Air 05/26/25 10:35 Allergies Allergy/AdvReac Type Severity Reaction Status Date / Time Sulfa (Sulfonamide Allergy Intermediate Swelling Verified 05/26/25 10:29 Antibiotics) red dye Allergy Mild Hives Verified 05/26/25 10:29 Home Medications ?Medication ?Instructions ?Recorded ?Confirmed ?Type No Home Medications 05/19/25 05/26/25 History Patient hx anesthesia problems: none Family hx anesthesia problems: none Results Review: All pre-operative results and documents have been reviewed as part of the pre-operative evaluation. [facility] Surgical History Surgical History History of breast augmentation Social History Social History Smoking status: Never smoker Second hand tobacco smoke exposure: Yes Alcohol intake: current Drinks per week: 2 Substance use: former Substance use type: marijuana Other substance usage details: [place] puga Living arrangements: with family Spiritual care concerns: No Anes - Eval Final PreProcedure Day of Procedure 05/26/25 11:36 Heart: regular rate and rhythm Lungs: clear to auscultation Airway: Mallampati scale class 1 Neurological: alert and oriented Last oral intake: >/= 8 hours ASA classification: II Anesthetic plan: proceed Anesthesia type and monitoring: general Results Review: All pre-operative results and documents have been reviewed as part of the pre-operative evaluation. Informed Consent: The patient's anesthetic plan and its attendant risks and benefits were discussed with the patient/family/POA. Questions were solicited and answers provided to the satisfaction of the patient/family/POA.
[2025-05-26] MEDS: TRANEXAMIC ACID 1,000 MG/10 ML AMPUL 1000 MG IV PUSH (12:04)
--- NOTE | 2025-05-26 12:13 | WPDHPUPDATE1 ---
History and Physical Update Update Date/Time: 05/26/25 12:13 History and Physical has been reviewed, including an updated exam of the patient. There are NO changes in the patient's condition. Risks, benefits, and alternatives have been discussed and questions answered. Patient agrees to proceed with procedure.
--- NOTE | 2025-05-26 12:15 | W.PM.PROC2 ---
Procedure Note - Detailed Date of Procedure 05/26/25 Pre-op Diagnosis History of Breast Augmentation Post-op Diagnosis Same Procedure Performed Bilateral breast implant exchange Surgeon Naveen Mcneal MD Anesthesia General Findings Previous implants: Smooth 10-330 Right ruptured Left intact No worrisome features New implants: Bilateral Eric Caba SoftTouch 340 cc Right: REF: [id number] SN [id number] Left: REF: SSLP-40 SN [id number] Description of Procedure Preoperatively the risks, benefits, alternatives were discussed in extensive detail. I wanted to be very realistic about the risks involved as well as expectations. I was clear about how we could actually make her worse. Answered all questions to satisfaction. Voiced a clear understanding. Consent obtained. She was taken the operating room placed supine on the operating room table. Anesthesia provided by anesthesiology and prepped and draped in a standard sterile fashion. Surgical time-out was taken. 1% lidocaine and 0.25% Marcaine with epinephrine was used to provide a field block. Tegaderm nipple aiken were placed. Fifteen blade used to excise the previous IMF scars. Dissection was continued down until the capsules were identified and excised a significant portion of the capsule which was sent to pathology. Implants removed. I then copiously irrigated with 3 L of saline solution on TUR tubing. Verified strict hemostasis. I then irrigated with Betadine containing solution. Using a no-touch technique and a Keys funnel the implant was introduced into the pocket. This was closed with 2-0 PDS followed by 3-0 Monocryl and a running subcuticular 4-0 Monocryl followed by tissue glue. Dressings were placed. She was woken taken to the PACU without difficulty. All instrument sponge counts were correct at the end of the case. Estimated Blood Loss 30 Drains No Packing No Pathology None sent Complications No immediate complications Condition Stable Disposition PACU
[2025-05-26] MEDS: BUPIVACAINE/EPINEPHRINE 0.5% 50 ML VIAL 30 ML INFILTRATE (12:28)
[2025-05-26] MEDS: ceFAZolin SODIUM 2 GM/20 ML SW SYRINGE IV PUSH (12:28)
[2025-05-26] MEDS: LIDO 1%/EPINEPHRINE 1:100,000 20 ML VIAL 30 ML INFILTRATE (12:28)
== END 2025-05-26 15:10 | disposition home or self-care (01) ==
PROVIDERS: PCP Family Medicine; Visit Provider Surgery Plastic and Reconstructive Surgery
PROC: (CPT 19342; principal; 2025-05-26 12:00)
DX: T85.41XA Breakdown (mechanical) of breast prosthesis and implant, initial encounter (principal); Y83.8 Other surgical procedures as the cause of abnormal reaction of the patient, or of later complication, without mention of misadventure at the time of the procedure
CPT/HCPCS: 19325; 19371